=== PATIENT | male | born 1955 ===

== ENCOUNTER 2018-01-15 06:46 | Day surgery (SDC) | payer OTHER ==
[2016-10-18 16:28] VITALS: BMI 29.1
[2018-01-15] MEDS ORDERED: Propofol 10 mg/ml Inj (20 ML) ONE ×2 (09:30)
[2018-01-15] MEDS ORDERED: Lactated Ringer's 1,000 ML IV ONE (09:30)
[2018-01-15 10:36] VITALS: TEMP 97.8
[2018-01-15 10:39] VITALS: O2SAT 100
[2018-01-15 11:33] VITALS: BP 116/71; PULSE 67; RESP 13
== END 2018-01-15 11:25 | disposition home or self-care (01) ==
LOC: C.ENDO 06:46
PROVIDERS: ATTEND Internal Medicine Gastroenterology
DX: D12.0 Benign neoplasm of cecum (principal); D12.5 Benign neoplasm of sigmoid colon; D12.8 Benign neoplasm of rectum; K64.8 Other hemorrhoids
CPT/HCPCS: 45388; 88305; J2704; J7120